=== PATIENT | male | born 1935 | race Native Hawaiian/Other Pacific Islander ===

== ENCOUNTER 2017-07-29 08:32 | Day surgery (SDC) | payer MEDICARE ==
[2017-07-29] MEDS ORDERED: Midazolam 2 MG/2 ML VIAL ONE (11:00)
[2017-07-29] MEDS ORDERED: Propofol 10 mg/ml Inj (20 ML) ONE (11:00)
[2017-07-29] MEDS ORDERED: Bupivacaine HCl 0.25% PF (10 ml) Inj ONE (11:01)
[2017-07-29] MEDS ORDERED: Lidocaine 2% w Epi 1:100,000 Inj IJ ONE (11:01)
[2017-07-29] MEDS ORDERED: Lactated Ringer's 1,000 ML IV ONE ×2 (11:10)
[2017-07-29] MEDS: ceFAZolin IV 2 gm in Dextrose 2 GM/50 ML BAG IVPB ONE ×2 (11:10→11:30)
[2017-07-29] MEDS ORDERED: Oxycodone/Acetaminophen 5/325 mg Tab PO PRN (12:35)
--- NOTE | 2017-07-29 12:37 | PCM.SURG1 ---
Surgeon's Initial Post Op Note - Surgeon's Notes Surgeon: Dr. [facility] Specialist: Sayra PGY1 Type of Anesthesia: General Endo Pre-Operative Diagnosis: Spontaneous rectus sheath hematoma Operative Findings: see operative report Post-Operative Diagnosis: Spontaneous rectus sheath hematoma Operation Performed: Evacuation of rectus sheath hematoma and irrigation Specimen/Specimens Removed: rectus sheath hematoma/clots Estimated Blood Loss: EBL {In ML}: 200 Blood Products Given: N/A Drains Used: Justin (15 fr) Post-Op Condition: Good Date of Surgery/Procedure: 07/29/17 Time of Surgery/Procedure: 11:30
[2017-07-29] MEDS ORDERED: Lactated Ringer's 500 ML IV ONE (15:00)
[2017-07-29 15:55] VITALS: BP 97/55; PULSE 79; RESP 18; TEMP 97.7; O2SAT 97
== END 2017-07-29 16:00 | disposition home or self-care (01) ==
LOC: C.SDS 08:32
PROVIDERS: ATTEND Surgery Surgical Critical Care
DX: M79.81 Nontraumatic hematoma of soft tissue (principal); E11.9 Type 2 diabetes mellitus without complications; Z85.46 Personal history of malignant neoplasm of prostate; Z79.899 Other long term (current) drug therapy; Z95.1 Presence of aortocoronary bypass graft; Z95.5 Presence of coronary angioplasty implant and graft; Z79.84 Long term (current) use of oral hypoglycemic drugs
CPT/HCPCS: 22999; 82948; 88304; J0690; J1170; J2250; J2704; J3010; J7120